=== PATIENT | male | born 1985 | race Caucasian/White ===

== ENCOUNTER 2018-06-23 12:16 | Emergency (ER) | payer OTHER ==
[~2018-06-23] VITALS: Ht 165.1 cm; Wt 68.0 kg
[2018-06-23] MEDS ORDERED: ULTRACET PO (22:04)
== END 2018-06-23 22:57 | disposition home or self-care (01) ==
LOC: ER 12:16
DX: M54.5 Low back pain (principal); K21.9 Gastro-esophageal reflux disease without esophagitis